=== PATIENT | female | born 1965 | race Caucasian/White ===

== ENCOUNTER 2018-01-06 04:43 | Observation (INO) | payer OTHER ==
[2018-01-06 05:19] LABS: Hemoglobin 13.9 g/dL (12.0-16.0); Mean Corpuscular HGB CONC 31.5 g/dL (32.0-36.0); Mean Corpuscular Hemoglobin 27.3 pg (27.0-31.0); Mean Corpuscular Volume 86.6 fL (78.0-98.0); Mean Platelet Volume 6.5 fL (7.4-10.4); Platelet Count 449 thou/uL (130-400); RBC Distribution Width 12.9 % (11.5-14.5); Red Blood Cell (RBC) Count 5.11 mill/uL (4.20-5.40); White Blood Cell (WBC) Count 8.8 thou/uL (4.8-10.8)
[2018-01-06 05:40] LABS: ALT (SGPT) 67 U/L (8-55); AST (SGOT) 39 U/L (5-34); Albumin 3.9 g/dL (3.5-5.0); Alkaline Phosphatase 135 U/L (40-150); Anion Gap 12 mmol/L (10-20); BUN (Urea Nitrogen) 20 mg/dL (7.0-18.7); Bilirubin, Total 0.5 mg/dL (0.2-1.2); CK (CPK) 81 U/L (29-168); Calc. Creatinine Clearance 0 mL/min (70-130); Calcium 9.2 mg/dL (7.8-10.44); Carbon Dioxide 25 mmol/L (22-29); Chloride 104 mmol/L (98-107); Eosinophils 4 % (0-10); Estimated GFR-MDRD Greater than 90; Globulin 3.8 g/dL (2.4-3.5); Glucose 98 mg/dL (70-105); Lipase 34 U/L (8-78); Lymphocytes 50 % (21-51); MDiff Complete? YES; Monocytes 6 % (0-10); Neutrophil 26 % (42-75); PLT Morphology Comment Appears Increased; Potassium 4.3 mmol/L (3.5-5.1); Protein, Total 7.7 g/dL (6.0-8.3); Reactive Lymphocytes 14 % (0-10); Sodium 137 mmol/L (136-145)
[2018-01-06 05:44] LABS: CKMB 2.3 ng/mL (0-6.6); Troponin I Less than 0.010 ng/mL (< 0.028)
--- NOTE | 2018-01-06 07:28 | PDOC.FPRHP ---
- History of Present Illness Chief Complaint: Chest pain History of Present Illness: This is a 52 yo female with a PMH of HTN, HLD who presents to the ED with cc of chest pain. She states that the pain started on Monday afternoon. She states that the pain started on the left side of her chest and moved to her mid chest. She reports that the pain worsened each day until she came in. She reports the pain feels like pressure and was episodic lasting 4-5 minutes at a time. She states that the pain is worse with laying down and improves when she sits up. She reports associated diaphoresis. She reports she has had a pain similar to this before but never with this intensity. Pt. reports increased stress with an autistic daughter. is away often with work which adds stress. - Allergies/Adverse Reactions Allergies Allergy/AdvReac Type Severity Reaction Status Date / Time No Known Allergies Allergy Verified 01/06/18 10:21 - History PMHx: HTN, HLD, ADHD PSHx: Noncontributory FHx: Multiple family members on fathers side have required CABG Social: Smokes a pack a day for 30 years, occasional alcohol use, denies drugs - Review of Systems General: reports: fatigue (progressive). denies: fever/chills, weight/appetite/ sleep changes, night sweats Eyes: denies: eye pain, vision changes ENT: denies: nasal congestion, rhinorrhea Respiratory: denies: cough, congestion, shortness of breath Cardiovascular: reports: chest pain. denies: palpitation, edema Gastrointestinal: denies: nausea, vomiting, diarrhea, constipation Genitourinary: denies: dysuria Skin: denies: rashes, lesions Musculoskeletal: denies: pain, tenderness, stiffness Neurological: denies: numbness, syncope Psychological: denies: anxiety, depression - Vital signs BP: 153/95 HR: 90 RR: 22 Tmax: 99.0 Pox: 98% on ra Wt: 88.5 - Physical Exam Constitutional: NAD, awake, alert and oriented, well developed HEENT: normocephalic and atraumatic, EOMI, MMM Neck: FROM, trachea midline Chest: no-tender to palpation Heart: RRR, normal S1/S2, no murmurs/rubs/gallops, pulses present, no edema, other (nor rubs) Lungs: CTAB, no respiratory distress Abdomen: soft, non-tender, bowel sounds present, no masses/distention Musculoskeletal: normal structure, ROM grossly normal Neurological: no focal deficit, CN II-XII intact Skin: no rash/lesions, capillary refill <2 seconds Psychiatric: normal mood and affect, good judgment and insight FMR H&P: Results - Labs Result Diagrams: 01/06/18 05:05 01/06/18 05:05 Lab results: WBC 8.8 thou/uL (4.8-10.8) 01/06/18 05:05 Hgb 13.9 g/dL (12.0-16.0) 01/06/18 05:05 Hct 44.2 % (36.0-47.0) 01/06/18 05:05 MCV 86.6 fL (78.0-98.0) 01/06/18 05:05 Plt Count 449 thou/uL (130-400) H 01/06/18 05:05 Sodium 137 mmol/L (136-145) 01/06/18 05:05 Potassium 4.3 mmol/L (3.5-5.1) 01/06/18 05:05 Chloride 104 mmol/L (98-107) 01/06/18 05:05 Carbon Dioxide 25 mmol/L (22-29) 01/06/18 05:05 BUN 20 mg/dL (7.0-18.7) H 01/06/18 05:05 Creatinine 0.67 mg/dL (0.6-1.1) 01/06/18 05:05 Glucose 98 mg/dL (70-105) 01/06/18 05:05 Calcium 9.2 mg/dL (7.8-10.44) 01/06/18 05:05 Total Bilirubin 0.5 mg/dL (0.2-1.2) 01/06/18 05:05 AST 39 U/L (5-34) H 01/06/18 05:05 ALT 67 U/L (8-55) H 01/06/18 05:05 Alkaline Phosphatase 135 U/L (40-150) 01/06/18 05:05 Creatine Kinase 81 U/L (29-168) 01/06/18 05:05 CK-MB (CK-2) 2.3 ng/mL (0-6.6) 01/06/18 05:05 Serum Total Protein 7.7 g/dL (6.0-8.3) 01/06/18 05:05 Albumin 3.9 g/dL (3.5-5.0) 01/06/18 05:05 Lipase 34 U/L (8-78) 01/06/18 05:05 - EKG Interpretation EKG: NSR, no st elevations or depressions FMR H&P: A/P - Problem List (1) Chest pain Current Visit: Yes Status: Acute Code(s): R07.9 - CHEST PAIN, UNSPECIFIED (2) HTN (hypertension) Current Visit: Yes Status: Acute Code(s): I10 - ESSENTIAL (PRIMARY) HYPERTENSION (3) HLD (hyperlipidemia) Current Visit: Yes Status: Acute Code(s): E78.5 - HYPERLIPIDEMIA, UNSPECIFIED (4) Tobacco abuse disorder Current Visit: Yes Status: Acute Code(s): Z72.0 - TOBACCO USE - Plan This is a 52 yo female with a pmh of HTN and HLD Typical chest pain R/O ACS -Admit to tele obs. Troponins negative x1, we are trending. -Stress test later today -Pt. has received aspirin in ED -Will monitor vitals HTN -We will restart pt. on bp medication at time of discharge if indcated. BP in ER was as low as 125/82 HLD -Continue home meds ADHD -Pt. reports taking vyvanse but can probably be stopped Tobacco abuse -I counseled pt. on cessation Code: Full Prophylaxis: SCDs Family: at bedside Disposition: Home in 1-2 days FMR H&P: Upper Level - Pertinent history 52 yo female here for chest pain. She reports it has been going on for the past 3 days. Midsternal and left side of chest, tightness radiating to shoulder and upper left back. Last 4-5 minutes. Occurs when laying down and improves when she sits forward. Assoc diaphoresis. Reports she had viral illness 2 weeks ago with fatigue and body aches. Med hx of hypertriglycerides, HTN. Medications include vyvanse, coq10. Was previously on HCTZ, but weaned [herself] off. Endorses 30 pk-year smoking. - Pertinent findings 125/82 HR: 90 Temp: 99.0 97% on RA GEN: NAD, AOx3 PULM: CTAB CAD: RRR, sometimes a 2/6 murmur heard on L sternal border; no pericardial friction rub; pain with palpation of chest but not the same level that she is describing during episodes ABD: soft nontender EKG: normal sinus, no diffuse ST segment changes - Plan Date/Time: 01/06/18 0707 ISubhash DO, have evaluated this patient and agree with findings/plan as outlined by internet media planner resident. Pertinent changes/additions are listed here. #Typical chest pain, r/o ACS -patient NPO since last night, will put in for stress and see if it can be done today -HEART score: 3 -minimal concern for pericarditis, will consider ECHO and admit to tele #Sinus tach captured on tele strip -admit to tele and continue to monitor #Hypertension -stable range -continue to monitor #Hyperlipidemia Attending Addendum - Attending Addendum Date/Time: 01/06/18 2267 I personally evaluated the patient and discussed the management with team. I agree with and repeated the History, Examination, Assessment and Plan documented above with any addition or exceptions noted below. Somewhat of an exertional component to her pain as well. Nonfocal exam. I do not feel PE or AD is a likely diagnosis. Will send TSH and hep panel for her elevated LFTs. Stress today.
[2018-01-06 08:40] LABS: Troponin I Less than 0.010 ng/mL (< 0.028)
[2018-01-06] MEDS ORDERED: Ondansetron ODT 4 MG TAB PO PRN (08:51)
--- NOTE | 2018-01-06 09:20 | RAD ---
CHEST 2 VIEWS: Date: 01/06/18 HISTORY: Chest pain. COMPARISON: None. FINDINGS: Lungs are clear. No pneumothorax or effusion. Cardiac silhouette and mediastinal contour is within no rmal limits. IMPRESSION: No acute intrathoracic abnormality. POS: LOGANH
[2018-01-06 10:19] VITALS: BMI 32.8
[2018-01-06 12:05] LABS: Troponin I Less than 0.010 ng/mL (< 0.028)
[2018-01-06 13:05] LABS: HBCM Index 0.08 S/CO (0-0.79); HBSAg Index 0.17 S/CO (0-0.99); Hep A IgM AB Non-Reactive (NonReactive); Hep B Surf Ag Non-Reactive S/CO (NonReactive); Hep C IgG Ab Non-Reactive (NonReactive); Hep C Index 0.44 S/CO (0-0.79); Hepatitis B Core IgM Abs Non-Reactive (NonReactive)
[2018-01-06] MEDS ORDERED: Ketorolac Tromethamine 30 MG/ML VIAL IVP SCH (15:45)
--- NOTE | 2018-01-06 17:01 | CON ---
DATE OF CONSULTATION: 01/06/2018 HISTORY OF PRESENT ILLNESS: Patient is a 52-year-old woman who presented with left-sided chest discomfort. The patient has no previous cardiac history. The patient states a few days ago she started having fevers and chills. She noted having an elevated temperature. The patient then started developed midsternal chest discomfort. This radiated into her left arm. This discomfort was clearly made worse when she lied down and improved when she sat up. The patient denies having any chest pain with exertion. The patient has several cardiac risk factors including hypertension, dyslipidemia, family history of coronary artery disease and a history of tobacco abuse. PAST MEDICAL HISTORY: 1. Hypertension. 2. ADHD. 3. Hypercholesterolemia. 4. Hypertriglyceridemia. PAST SURGICAL HISTORY: Neck surgery. SOCIAL HISTORY: Smokes one pack per day. FAMILY HISTORY: Positive family history of heart disease. Father had coronary artery disease. ALLERGIES: None. MEDICATIONS: Vyvanse, hydrochlorothiazide, HCTZ. REVIEW OF SYSTEMS: Ten-point system otherwise unremarkable. PHYSICAL EXAMINATION: GENERAL: Obese woman in no acute distress. VITAL SIGNS: Blood pressure 131/82. NECK: No jugular venous distention. LUNGS: Clear to auscultation. HEART: Regular rate and rhythm, normal S1, S2, no murmurs, no friction rubs. ABDOMEN: Distended. EXTREMITIES: Showed no edema. SKIN: Warm and dry. NEUROLOGIC: Nonfocal. LABORATORY DATA AND IMAGING DATA: White blood count 8.8, hemoglobin 13.9, hematocrit 44.2, her platelets are 449. Sodium is 137, potassium 4.3, chloride 104, bicarbonate 25, BUN 20, creatinine 0.67, troponin less than 0.01. White blood cell count 8.8, hemoglobin 13.9, hematocrit 44.2, platelets are 449. Her EKG revealed her to have normal sinus rhythm with [address] elevation noted throughout the precordium. IMPRESSION: 1. Chest pain probably secondary to pericarditis. 2. Hypertension. 3. Dyslipidemia. 4. Obesity. 5. Tobacco abuse. This patient presents with chest pain most suggestive of pericarditis. The patient today underwent a Cardiolite stress test to make sure there is no evidence of ischemia. I would recommend treating the patient with Toradol and Motrin. We will check the patient's echocardiogram. We will follow this patient with you through her hospitalization. DAVINA
--- NOTE | 2018-01-06 17:39 | NM ---
NUCLEAR MEDICINE CARDIAC SPECT WITH EF AND WALL MOTION: 01/06/18 HISTORY: 52-year-old female with chest pain, dyslipidemia, hypertension. The patient was stressed using Magan protocol. Patient was injected with 27.0 millicuries technetium 99m Sestamibi intravenously for stress images and patient was injected with 9.0 millicuries technetiu m 99m Sestamibi intravenously for resting images. Multiple SPECT images in the short axis, vertical long axis, and horizontal long axis demonstrates no scan evidence for infarct or ischemia. TID - 1.00 LHR - 0.39 EDV - 76 mL. EF - 69%. MYOCARDIAL PERFUSION WALL MOTION: Wall motion is normal. IMPRESSION: Normal nuclear medicine cardiac SPECT with EF and wall motion. POS: CUATE
[2018-01-06] MEDS ORDERED: Ketorolac Tromethamine 10 MG TAB PO SCH (18:00)
[2018-01-06] MEDS ORDERED: Ibuprofen 800 MG TAB PO SCH (18:00)
[2018-01-06] MEDS: Colchicine 0.6 MG TAB PO SCH (20:35)
[2018-01-06] MEDS: diphenhydrAMINE 25 MG CAP PO PRN (20:35)
[2018-01-06] MEDS: Acetaminophen 325 MG TAB PO PRN (22:16)
[2018-01-07] MEDS: Ibuprofen 800 MG TAB PO SCH ×2 (00:15→08:27)
[2018-01-07] MEDS: diphenhydrAMINE 25 MG CAP PO PRN (00:15)
[2018-01-07] MEDS: Acetaminophen 325 MG TAB PO PRN (04:28)
--- NOTE | 2018-01-07 05:35 | PDOC.FM ---
- Subjective Subjective: Lucinda Osborn seen at bedside this morning. She is doing well, no complaints and there were no acute events overnight. She had a normal stress test yesterday and was seen by Cardiology, Dr. Michele, who thought her symptoms are likely due to pericarditis and initiated therapy with ibuprofen 800 mg BID. Patient states that she is feeling better and the chest pain is improved. She states that she would like to go home today. - Objective MAR Reviewed: Yes Vital Signs & Weight: Vital Signs (12 hours) Temp Pulse Resp BP BP Pulse Ox 01/07/18 04:00 98.1 F 82 18 111/58 L 96 01/07/18 00:16 98.3 F 90 20 100/58 L 96 01/06/18 19:45 98.2 F 90 20 111/62 94 L Weight Weight 89.556 kg I&O: 01/05/18 01/06/18 01/07/18 06:59 06:59 06:59 Intake Total 670 Balance 670 Result Diagrams: 01/06/18 05:05 01/06/18 05:05 <Benton Cardona - Last Filed: 01/07/18 06:58> - Objective Vital Signs & Weight: Vital Signs (12 hours) Temp Pulse Resp BP BP Pulse Ox 01/07/18 11:43 98.6 F 88 16 120/58 L 94 L 01/07/18 07:46 98.2 F 77 20 116/56 L 96 01/07/18 04:00 98.1 F 82 18 111/58 L 96 Weight Weight 89.556 kg I&O: 01/06/18 01/07/18 01/08/18 06:59 06:59 06:59 Intake Total 670 240 Balance 670 240 Result Diagrams: 01/06/18 05:05 01/06/18 05:05 <Gilmer Brady - Last Filed: 01/07/18 12:52> Phys Exam - Physical Examination Constitutional: NAD HEENT: moist MMs, sclera anicteric Neck: no JVD, supple, full ROM Respiratory: no wheezing, no rales, no rhonchi, clear to auscultation bilateral Cardiovascular: RRR, no significant murmur, no rub Gastrointestinal: soft, non-tender, no distention Musculoskeletal: no edema, pulses present Neurological: moves all 4 limbs Psychiatric: normal affect, A&O x 3 <BrendanBenton - Last Filed: 01/07/18 06:58> Dx/Plan (1) Chest pain Code(s): R07.9 - CHEST PAIN, UNSPECIFIED Status: Acute (2) HLD (hyperlipidemia) Code(s): E78.5 - HYPERLIPIDEMIA, UNSPECIFIED Status: Chronic (3) HTN (hypertension) Code(s): I10 - ESSENTIAL (PRIMARY) HYPERTENSION Status: Chronic (4) Tobacco abuse disorder Code(s): Z72.0 - TOBACCO USE Status: Chronic (5) Elevated LFTs Code(s): R94.5 - ABNORMAL RESULTS OF LIVER FUNCTION STUDIES Status: Acute - Plan Plan: This is a 52 yo female presents with chest pain who has a pmh of HTN and HLD (1) Pericarditis - Initial concern for ACS. Trops negative X3, normal stress test yesterday, EF of 69% - EKG revealed [address] elevated throughout precordium - Treat with ibuprofen 800 mg BID - Continue asa and statin - Will monitor vitals and symptoms (2) HTN - Continue home medications - BP this morning 111/58 (3) HLD - Continue home meds (4) ADHD - Counseled patient on vyvanse side effects - recommended against use of stimulants in the future (5) Tobacco abuse - counseled pt on cessation <Benton Cardona - Last Filed: 01/07/18 06:58> (1) Chest pain Code(s): R07.9 - CHEST PAIN, UNSPECIFIED Status: Acute (2) HTN (hypertension) Code(s): I10 - ESSENTIAL (PRIMARY) HYPERTENSION Status: Chronic (3) HLD (hyperlipidemia) Code(s): E78.5 - HYPERLIPIDEMIA, UNSPECIFIED Status: Chronic (4) Tobacco abuse disorder Code(s): Z72.0 - TOBACCO USE Status: Chronic <Gilmer Brady - Last Filed: 01/07/18 12:52> Attending Addendum - Attending Addendum Date/Time: 01/07/18 6482 I personally evaluated the patient and discussed the management with team. I agree with and repeated the History, Examination, Assessment and Plan documented above with any addition or exceptions noted below. Pt s cp/sob/n/v/f/c. Agree with plan. Follow up TTE if not read at time of d/ c. <Gilmer Brady - Last Filed: 01/07/18 12:52>
[2018-01-07] MEDS: Colchicine 0.6 MG TAB PO SCH (08:28)
[2018-01-07 11:54] VITALS: BP 120/58; TEMP 98.6
--- NOTE | 2018-01-07 15:13 | DIS-2 ---
DATE OF ADMISSION: 01/06/2018 DATE OF DISCHARGE: 01/07/2018 RESIDENT: Benton Cardona M.D. ADMITTING ATTENDING: Gilmer Brady M.D. DISCHARGE ATTENDING: Gilmer Brady M.D. CONSULTATIONS: Cardiology, Tramaine Michele M.D. PROCEDURES: 1. Chest x-ray on 01/06/2018, impression, no acute intrathoracic abnormality. 2. Stress test nuclear medicine on 12/06/2017, impression, normal nuclear medicine cardiac SPECT wit h EF and wall motion. EF was 89%. Wall motion was normal. 3. Echocardiogram pending. PRIMARY DIAGNOSIS: Pericarditis. SECONDARY DIAGNOSES: 1. Hypertension. 2. Hyperlipidemia. 3. Attention deficit hyperactivity disorder. 4. Tobacco abuse. DISCHARGE MEDICATIONS: 1. Acetaminophen 650 mg p.o. q.4 hours p.r.n. 2. Colchicine 0.6 mg p.o. b.i.d. for 3 months. 3. Ibuprofen 800 mg p.o. t.i.d. DISCONTINUED HOME MEDICATIONS: Vyvanse 40 mg p.o. daily. HISTORY OF PRESENT ILLNESS AND HOSPITAL COURSE: Lucinda Osborn is a 52-year-old female with past medic al history of hypertension and hyperlipidemia who presented to the ED with a complaint of chest pain. She stated that the chest pain started approximately 3 days prior and started on the left side of h er chest and moved to her mid chest. She reported that it worsened each day until she decided to com e in. She states the pain was a pressure-like sensation, lasting 4-5 minutes at that time, was worse when lying down flat and improved when she sat up and even leaned forward. She reported associated diaphoresis. She states that she has had similar pain to this before, but never this bad. On admiss ion, the patient's vitals are blood pressure 133/95, heart rate 90, respiratory rate 22, T-max 99.0, pulse ox 98% on room air. Labs on admission, white blood cell count 8.8, hemoglobin 13.9, hematocrit 44.2, platelets 449,000. EKG on admission showed normal sinus rhythm with possible [address] elevatio ns in the precordial leads. Chest x-ray as above. The patient was admitted to rule out acute weathers ry syndrome. She had troponins negative x3. Stress test was performed and was normal. Echocardiogr am was done in the hospital and the results are pending. The patient was restarted on home blood pre ssure medications and blood pressure was normal throughout her hospital stay. Cardiology saw the jaxon melendez and thought that etiology was likely due to pericarditis. We recommended a stress test to ensur e that there was no evidence of ischemia. Recommended treating the patient with NSAIDs. The patient 's symptoms improved dramatically over her hospital stay. The patient was instructed to follow up [facility] primary care provider and continue taking ibuprofen and colchicine, taking the colchicine for the next 3 months. The patient understood discharge instructions. DISPOSITION: Stable. DISCHARGE INSTRUCTIONS: 1. Location: Home. 2. Diet: Heart healthy diet. 3. Activity: As tolerated. 4. Followup: With primary care provider in 1-2 weeks.
== END 2018-01-07 12:12 | disposition home or self-care (01) ==
LOC: ERS 04:43 → ERHOLD 06:58 → 2SW 10:11
PROVIDERS: ADMIT Family Medicine; ATTEND Urology
DX: I31.9 Disease of pericardium, unspecified (principal); E78.5 Hyperlipidemia, unspecified; F90.9 Attention-deficit hyperactivity disorder, unspecified type; F17.210 Nicotine dependence, cigarettes, uncomplicated; I10 Essential (primary) hypertension; R94.5 Abnormal results of liver function studies; E66.9 Obesity, unspecified; Z68.32 Body mass index [BMI] 32.0-32.9, adult
CPT/HCPCS: 36415; 71046; 78452; 80053; 80074; 82553; 83690; 84443; 84484; 85025; 93005; 93017; 93306; 96374; A9500; G0378; J1885

== ENCOUNTER 2018-03-28 15:20 | Outpatient (CLI) | payer OTHER ==
--- NOTE | 2018-03-28 16:02 | ULT ---
LEFT LOWER EXTREMITY VENOUS DUPLEX ULTRASOUND INCLUDING COLOR AND SPECTRAL DOPPLER IMAGIN03/28/18 HISTORY: I82.402, left lower leg swelling and pain. FINDINGS: Exam performed from groin to ankle including visualized greater saphenous, common femoral, superficia l femoral, profunda femoral, popliteal, trifurcation, or posterior tibial vein regions. There is phas ic flow at all levels with normal compressibility and normal augmentation. No evidence for intralumin al thrombus. There is a large collection of fluid within the posterior calf measuring approximately 7 .1 cm transversely and 7.9 cm in craniocaudal dimension and 1.7 cm in AP dimension. Evidence for flo e type of abnormal probable intermuscular fluid collection. This certainly could represent some type of a hematoma or seroma with appropriate clinical findings. This could represent an abscess. IMPRESSION: No evidence for deep venous thrombosis. Large probable intermuscular fluid collection in the left po sterior calf which may well present a large hematoma or seroma. Although an abscess could have a dell lar ultrasound appearance, correlate clinically. Followup MRI of the calf is recommended for further assessment. POS: WILMER
== END 2018-03-28 15:21 | disposition home or self-care (01) ==
LOC: BICULT 15:20
PROVIDERS: ATTEND Family Medicine
DX: I82.402 Acute embolism and thrombosis of unspecified deep veins of left lower extremity (principal)

== ENCOUNTER 2019-02-04 15:11 | Outpatient (CLI) | payer OTHER ==
--- NOTE | 2019-02-04 16:02 | MMO ---
Bilateral MAMMO Bilat Screen [facility]. CLINICAL HISTORY: Patient is 53 years old and is seen for screening. The patient has no family history of breast cancer. The patient has no personal history of cancer. VIEWS: The views performed were: bilateral craniocaudal with tomosynthesis and bilateral mediolateral oblique with tomosynthesis. FILMS COMPARED: The present examination has been compared to prior imaging studies performed at [facility] on 09/20/2013, 01/21/2014 and 02/02/2015. This study has been interpreted with the assistance of computer-aided detection. MAMMOGRAM FINDINGS: There are scattered fibroglandular densities. Finding 1: There are stable benign appearing calcifications seen in both breasts. Finding 2: There are stable benign appearing densities seen in both breasts. There are no suspicious masses, suspicious calcifications, or new areas of architectural distortion. IMPRESSION: THERE IS NO MAMMOGRAPHIC EVIDENCE OF MALIGNANCY. A ROUTINE FOLLOW-UP MAMMOGRAM IN 1 YEAR IS RECOMMENDED. THE RESULTS OF THIS EXAM WERE SENT TO THE PATIENT. ACR BI-RADS Category 2 - Benign finding MAMMOGRAPHY NOTE: 1. A negative mammogram report should not delay a biopsy if a dominant of clinically suspicious mass is present. 2. Approximately 10% to 15% of breast cancers are not detected by mammography. 3. Adenosis and dense breasts may obscure an underlying neoplasm. Reported by: SUKHWINDER SINGLETON MD Electonically Signed: [id number]
== END 2019-02-04 15:12 | disposition home or self-care (01) ==
LOC: BICMAMMO 15:11
PROVIDERS: ATTEND Family Medicine
DX: Z12.31 Encounter for screening mammogram for malignant neoplasm of breast (principal)
CPT/HCPCS: 77063; 77067